=== PATIENT | male | born 1985 | race Hispanic/Latino ===

== ENCOUNTER 2017-03-18 17:10 | Emergency (ER) | payer BC ==
[2017-03-18 17:15] VITALS: BP 143/68; PULSE 109; RESP 18; TEMP 98.9; O2SAT 98
[2017-03-18] MEDS ORDERED: Epinephrine /Lidocaine HCL 1:100,000/2% 30 ml INJ ONE (17:22)
[2017-03-18] MEDS ORDERED: Lidocaine 2% w Epi 1:100,000 Inj IJ ONE (17:25)
--- NOTE | 2017-03-18 17:28 | ED PDOC ---
Upper Extremity Pain/Injury Time Seen by Provider: 03/18/17 17:16 Chief Complaint (Nursing): Abnormal Skin Integrity Chief Complaint (Provider): Laceration Right Arm History Per: Patient History/Exam Limitations: no limitations Onset/Duration Of Symptoms: Mins (30) Current Symptoms Are (Timing): Still Present Additional Complaint(s): Clarence Christensen is a 31 year old male that presents to the ED with a chief complaint of a laceration to his right elbow that he sustained 30 minutes prior to arrival, which he obtained after he fell onto glass and broke the glass. Denies numbness or tingling, tetanus vaccination UTD. Past Medical History Reviewed: Historical Data, Nursing Documentation, Vital Signs Vital Signs: Last Vital Signs Temp 98.9 F 03/18/17 17:13 Pulse 109 H 03/18/17 17:13 Resp 18 03/18/17 17:13 BP 143/68 03/18/17 17:13 Pulse Ox 98 03/18/17 17:13 - Family History Family History: States: Unknown Family Hx - Immunization History Hx Tetanus Toxoid Vaccination: Yes - Allergies Allergies/Adverse Reactions: Allergies Allergy/AdvReac Type Severity Reaction Status Date / Time Sulfa (Sulfonamide Allergy FEVER Verified 03/18/17 17:13 Antibiotics) Review of Systems Musculoskeletal: Positive for: Arm Pain (laceration on right elbow) Neurological: Negative for: Numbness, Other (denies tingling) Physical Exam - Reviewed Nursing Documentation Reviewed: Yes Vital Signs Reviewed: Yes - Physical Exam Appears: Positive for: Non-toxic, No Acute Distress Head Exam: Positive for: ATRAUMATIC, NORMOCEPHALIC Skin: Positive for: Normal Color, Warm Cardiovascular/Chest: Positive for: Regular Rate, Rhythm. Negative for: Murmur Respiratory: Positive for: Normal Breath Sounds. Negative for: Wheezing Extremity: Positive for: Normal ROM (full ROM right elbow), Other (lunar shaped laceration noted to right olecranon, partial thickness, mild bleeding. ). Negative for: Swelling Neurologic/Psych: Positive for: Alert, head of art II-XII, Oriented - ECG O2 Sat by Pulse Oximetry: 98 (RA) Pulse Ox Interpretation: Normal - Radiology X-Ray: Interpreted by Me (small FB noted ) Medical Decision Making Medical Decision Making: Impression: Laceration to Right Elbow Plan: * X-Ray Right Elbow * Laceration Repair * Reevaluation Patient tolerated procedure well, with no immediate complications. Patient instructed not to bend elbow, is stable for discharge home. give wound care instructions not to wet wound and to keep splint on to prevent range of elbow. Scribe Attestation: Documented by Sonam Farrell, acting as a scribe for Kavitha Reese PA-C. Provider Scribe Attestation: All medical record entries made by the Scribe were at my direction and personally dictated by me. I have reviewed the chart and agree that the record accurately reflects my personal performance of the history, physical exam, medical decision making, and the department course for this patient. I have also personally directed, reviewed, and agree with the discharge instructions and disposition. Procedures - Laceration/Wound Repair Right Elbow Wound Length (cm): 2 (inch) Wound's Depth, Shape: irregular Wound Explored: contaminated (iirrigated with 500cc of betadine and NS mix) Irrigated w/ Saline (ccs): 250 Betadine Prep?: Yes Anesthesia: Lidocaine w/ Epi Volume Anesthetic (ccs): 5 Wound Debrided: minimal Wound Repaired With: Sutures Suture Size/Type: 4:0, nylon Wound Complexity: Simple (simple interrupted) Sterile Dressing Applied?: Yes Splint Applied?: Yes Disposition - Clinical Impression Clinical Impression: Laceration - Patient ED Disposition Is Patient to be Admitted: No Counseled Patient/Family Regarding: Need For Followup - Disposition Referrals: [facility] [Outside] [facility] [Outside] Disposition: Routine/Home Disposition Time: 18:05 Condition: STABLE Additional Instructions: do not bend elbow do not get elbow wet keep splint on have sutures removed in 2 weeks Instructions: Care For Your Stitches (ED), Laceration (ED), Stitches Removal ( ED)
--- NOTE | 2017-03-19 11:54 | RAD ---
PROCEDURE: Radiographs of the right elbow. HISTORY: laceration glass COMPARISON: No prior. FINDINGS: BONES: Normal. No acute fracture. JOINTS: Normal. SOFT TISSUES: Normal. JOINT EFFUSION: None. OTHER FINDINGS: There is soft tissue irregularity posteriorly with tiny radiodensities overlying the olecranon process. IMPRESSION: No acute fracture or dislocation. Tiny radiodensities in the soft tissues overlying the olecranon process could represent radiopaque foreign bodies.
== END 2017-03-18 18:15 | disposition home or self-care (01) ==
LOC: H.ER 17:10
DX: S51.011A Laceration without foreign body of right elbow, initial encounter (principal); W25.XXXA Contact with sharp glass, initial encounter; W45.8XXA Other foreign body or object entering through skin, initial encounter

== ENCOUNTER 2017-04-01 18:05 | Emergency (ER) | payer BC ==
[2017-04-01 18:23] VITALS: BP 139/76; PULSE 72; RESP 18; TEMP 98.6; O2SAT 100
--- NOTE | 2017-04-01 18:28 | ED PDOC ---
HPI: Wound Care - HPI Time Seen by Provider: 04/01/17 18:25 Chief Complaint (Nursing): Suture/Staple Removal Chief Complaint (Provider): suture removal History Per: Patient Additional Complaint(s): Patient presented to emergency department for wound check and suture removal from laceration to right elbow that was repaired 2 weeks ago. Patient has slight pain to the affected area but denies any active drainage or bleeding. No fever or chills. Past Medical History Reviewed: Historical Data, Nursing Documentation, Vital Signs Vital Signs: Last Vital Signs Temp 98.6 F 04/01/17 18:21 Pulse 72 04/01/17 18:21 Resp 18 04/01/17 18:21 BP 139/76 04/01/17 18:21 Pulse Ox 100 04/01/17 18:21 - Medical History PMH: No Chronic Diseases - Surgical History Surgical History: No Surg Hx - Family History Family History: States: No Known Family Hx - Living Arrangements Living Arrangements: With Family - Social History Current smoker - smoking cessation education provided: Yes Alcohol: Social Drugs: Denies - Immunization History Hx Tetanus Toxoid Vaccination: Yes - Allergies Allergies/Adverse Reactions: Allergies Allergy/AdvReac Type Severity Reaction Status Date / Time Sulfa (Sulfonamide Allergy FEVER Verified 03/18/17 17:13 Antibiotics) Review of Systems ROS Statement: Except As Marked, All Systems Reviewed And Found Negative Skin: Positive for: Other (suture removal of laceration to left elbow, repaired 2 weeks ago) Physical Exam - Reviewed Nursing Documentation Reviewed: Yes Vital Signs Reviewed: Yes - Physical Exam Appears: Positive for: Well, Non-toxic, No Acute Distress Eye Exam: Positive for: Normal appearance Extremity: Positive for: Other (sutured laceration to right olecranon, sutures are clean, dry and intact, no infection noted) Neurologic/Psych: Positive for: Alert, Oriented - ECG O2 Sat by Pulse Oximetry: 100 Pulse Ox Interpretation: Normal Medical Decision Making Medical Decision Makin31 year old male 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 Steri-strips were applied. Patient was advised to keep area clean and dry and return in one week for wound recheck. Disposition - Clinical Impression Clinical Impression: Encounter for re-check of laceration wound - Patient ED Disposition Is Patient to be Admitted: No Counseled Patient/Family Regarding: Diagnosis, Need For Followup - Disposition Referrals: [facility] [Outside] Disposition: Routine/Home Disposition Time: 18:41 Condition: STABLE Additional Instructions: Keep area clean and dry. Do not apply any topical ointment. Return in one week for further wound evaluation. Instructions: Laceration (ED), Care For Your Stitches (ED), Steristrips (ED)
== END 2017-04-01 19:28 | disposition home or self-care (01) ==
LOC: H.ER 18:05
DX: Z48.02 Encounter for removal of sutures (principal)

== ENCOUNTER 2017-04-08 17:32 | Emergency (ER) | payer BC ==
[2017-04-08 17:48] VITALS: BP 138/82; PULSE 84; RESP 18; TEMP 97.9; O2SAT 99
--- NOTE | 2017-04-08 17:59 | ED PDOC ---
HPI: Wound Care - HPI Time Seen by Provider: 04/08/17 17:39 Chief Complaint (Nursing): Suture/Staple Removal Chief Complaint (Provider): Suture Removal History Per: Patient History Of Present Illness: Levy Christensen is a 31 year old male, with no previous medical history, who presents to the emergency department for removal of sutures in the right elbow that he received 3 weeks ago. He denies any drainage, and pain. Denies further medical complaints PMD: None provided Exam Limitations: no limitations Location Of Injury: Right: Elbow Past Medical History Reviewed: Historical Data, Nursing Documentation, Vital Signs Vital Signs: Last Vital Signs Temp 97.9 F 04/08/17 17:39 Pulse 84 04/08/17 17:39 Resp 18 04/08/17 17:39 BP 138/82 04/08/17 17:39 Pulse Ox 99 04/08/17 17:39 - Medical History PMH: No Chronic Diseases - Surgical History Surgical History: No Surg Hx - Family History Family History: States: Unknown Family Hx - Social History Current smoker - smoking cessation education provided: No Alcohol: Social Drugs: Denies - Immunization History Hx Tetanus Toxoid Vaccination: Yes - Allergies Allergies/Adverse Reactions: Allergies Allergy/AdvReac Type Severity Reaction Status Date / Time Sulfa (Sulfonamide Allergy FEVER Verified 03/18/17 17:13 Antibiotics) Review of Systems ROS Statement: Except As Marked, All Systems Reviewed And Found Negative Skin: Negative for: Other (no pain, drainage, and erythema ) Physical Exam - Reviewed Nursing Documentation Reviewed: Yes Vital Signs Reviewed: Yes - Physical Exam Appears: Positive for: Well, Non-toxic, No Acute Distress Head Exam: Positive for: ATRAUMATIC, NORMAL INSPECTION, NORMOCEPHALIC Skin: Positive for: Normal Color, Warm, DRY Eye Exam: Positive for: Normal appearance ENT: Positive for: Normal ENT Inspection Neck: Positive for: Normal Extremity: Positive for: Normal ROM Neurologic/Psych: Positive for: Alert, Oriented - ECG O2 Sat by Pulse Oximetry: 99 (RA) Pulse Ox Interpretation: Normal Procedure: Wound Repair - Procedure Procedure: Wound Repair: Suture Removal Medical Decision Making Medical Decision Making: Initial Impression: Suture Removal Initial Plan: --Suture removal [address] in right elbow. Patient tolerated it well and was discharged home. Scribe Attestation: Documented by Myke Clay, acting as a scribe for Nano RITTER. Provider Scribe Attestation: All medical record entries made by the Scribe were at my direction and personally dictated by me. I have reviewed the chart and agree that the record accurately reflects my personal performance of the history, physical exam, medical decision making, and the department course for this patient. I have also personally directed, reviewed, and agree with the discharge instructions and disposition. Disposition - Clinical Impression Clinical Impression: Removal of suture - Disposition Condition: STABLE Instructions: Stitches Removal (ED)
== END 2017-04-08 18:07 | disposition home or self-care (01) ==
LOC: H.ER 17:32
DX: Z48.02 Encounter for removal of sutures (principal)